=== PATIENT | male | born 1980 | race Hispanic/Latino ===

== ENCOUNTER 2022-10-27 20:58 | Observation (INO) | payer BC, OTHER ==
[~2022-10-27] VITALS: Ht 170.2 cm; Wt 133.8 kg
[2022-10-28 00:10] LABS: BASOPHILS % (AUTO) 0.7 % (0.0-5.0); HEMATOCRIT 39.3 % (42-54); LYMPHOCYTES % (AUTO) 36.9 % (21.0-51.0); MEAN CORPUSCULAR HEMOGLOBIN 28.5 pg (27.0-33.0); MEAN CORPUSCULAR HGB CONC 32.8 g/dL (32.0-36.0); MEAN CORPUSCULAR VOLUME 86.9 fL (79-99); MONOCYTES % (AUTO) 5.6 % (3.0-13.0); NEUTROPHILS % (AUTO) 52.2 % (40.0-77.0); PLATELET COUNT (AUTO) 263 K/uL (130-400); RED BLOOD CELL COUNT(AUTO) 4.52 MIL/uL (4.50-6.20); RED CELL DISTRIBUTION WIDTH 13.8 % (11.0-15.5); WHITE BLOOD COUNT (AUTO) 8.7 K/uL (4.8-10.8)
[2022-10-28 00:15] LABS: CREATININE 0.7 mg/dL (0.5-1.5); POTASSIUM 3.5 mmol/L (3.5-5.1)
[2022-10-28 00:20] LABS: ALBUMIN 3.9 g/dL (3.5-5.0); TOTAL PROTEIN, SERUM 7.5 g/dL (6.0-8.3)
[2022-10-28] MEDS ORDERED: PANTOPRAZOLE 40 MG/VIAL IVP ONE (00:30)
[2022-10-28] MEDS: PANTOPRAZOLE 40MG INJ 80 MG in 0.9%NACL 100ML 100 ML IVP SCH ×2 (02:32→11:39)
[2022-10-28] MEDS ORDERED: ONDANSETRON 4MG INJ IV PRN (03:30)
[2022-10-28] MEDS ORDERED: MORPHINE 4 MG SYG IV PRN (03:30)
[2022-10-28] MEDS ORDERED: MORPHINE 2 MG SYG IV PRN (03:30)
[2022-10-28] MEDS ORDERED: OCTREOTIDE ACETATE 100 MCG/ML AMP IV ONE (03:30)
[2022-10-28] MEDS ORDERED: ACETAMINOPHEN 325 MG TAB PO PRN ×2 (03:30)
[2022-10-28] MEDS ORDERED: OCTREOTIDE ACETATE 1,250 MCG in 0.9% NACL 250ML 250 ML IV SCH (03:30)
[2022-10-28] MEDS ORDERED: POTASSIUM CHLORIDE 20MEQ/100ML 100 ML IV PRN (04:30)
[2022-10-28] MEDS ORDERED: MAGNESIUM 2GM PREMIX 50ML 50 ML IV PRN (04:30)
[2022-10-28] MEDS ORDERED: KCL 20 MEQ ERTAB PO PRN (04:30)
[2022-10-28] MEDS ORDERED: NICOTINE 14 MG/ 24 HR PATCH TD SCH ×2 (04:30→09:00)
[2022-10-28] MEDS ORDERED: POTASSIUM CHLORIDE 10% ELIXIR 20 MEQ/15 ML UDCUP PO PRN (04:30)
[2022-10-28 04:37] LABS: HEMOGLOBIN A1C 6.1 % (4.0-6.0)
[2022-10-28] MEDS ORDERED: PHARMACY COMMUNICATION MISC SCH (05:00)
[2022-10-28 05:22] LABS: APPEARANCE,URINE CLEAR (CLEAR); BILIRUBIN,URINE NEGATIVE (NEGATIVE); COLOR,URINE LIGHT-YELLOW (YELLOW); GLUCOSE, URINE (UA) NEGATIVE (NEGATIVE); KETONES,URINE NEGATIVE (NEGATIVE); LEUKOCYTE ESTERASE ,URINE NEGATIVE Leu/uL (NEGATIVE); NITRATE,URINE NEGATIVE (NEGATIVE); OCCULT BLOOD,URINE NEGATIVE (NEGATIVE); PH,URINE 5.5 (5.0-8.0); PROTEIN,URINE 20 mg/dL (NEGATIVE); UROBILINOGEN,URINE 0.2 mg/dL (0.2-1.0)
[2022-10-28] MEDS: 0.9%NACL 1000ML 1,000 ML IV SCH ×2 (05:23→17:24)
[2022-10-28 05:24] LABS: MUCUS,URINE RARE LPF (None Seen); RBC,URINE 0-1 /HPF (0-1); SQUAMOUS EPITHELIAL CELL,UR RARE /HPF (0-2); WBC,URINE 0-1 /HPF (0-1)
[2022-10-28] MEDS ORDERED: OCTREOTIDE ACETATE 200 MCG/ML 5 ML VIAL ONE (05:37)
[2022-10-28 07:01] LABS: HEMATOCRIT 39.4 % (42-54)
[2022-10-28 07:09] LABS: INR 0.94 (0.85-1.15); PROTHROMBIN TIME 10.3 SEC (9.6-11.6)
[2022-10-28 07:11] LABS: PARTIAL THROMBOPLASTIN TIME 29.1 SEC (26.3-35.5)
[2022-10-28 07:13] LABS: CREATININE 0.6 mg/dL (0.5-1.5); PHOSPHORUS 4.2 mg/dL (2.5-4.9); POTASSIUM 3.8 mmol/L (3.5-5.1)
[2022-10-28] MEDS: INSULIN HUMULIN R 100 UNIT/ML 3ML SQ SCH ×4 (07:30→20:30)
[2022-10-28] MEDS ORDERED: PANTOPRAZOLE 40MG INJ 80 MG in 0.9%NACL 100ML 100 ML IV SCH (09:00)
[2022-10-28] MEDS ORDERED: SERT-440 PO (09:40)
[2022-10-28] MEDS ORDERED: SEMA1PEN3 SQ (09:40)
[2022-10-28] MEDS ORDERED: PANT40TA55 PO (10:16)
[2022-10-28 12:57] LABS: HEMATOCRIT 41.3 % (42-54)
[2022-10-28 15:09] VITALS: BP 162/125
[2022-10-28 16:35] VITALS: BP 159/99
[2022-10-28 19:28] LABS: HEMATOCRIT 39.4 % (42-54)
[2022-10-28 19:45] VITALS: BP 170/100
[2022-10-28] MEDS ORDERED: HYDRALAZINE 20MG/ML VIAL IV ONE (20:00)
[2022-10-28 20:45] VITALS: BP 139/96
[2022-10-28] MEDS ORDERED: PANTOPRAZOLE 40 MG TAB DR PO SCH (21:00)
[2022-10-28 21:15] VITALS: BP 145/80
== END 2022-10-28 10:30 | disposition home or self-care (01) ==
LOC: EDH 20:58 → INTOOBSV 10-28 03:20 → EDHIP 10-28 03:20 → 2DH 10-28 14:46
PROVIDERS: ADMIT Internal Medicine; ATTEND Internal Medicine
DX: K92.1 Melena (principal); Z20.822 Contact with and (suspected) exposure to COVID-19; K64.9 Unspecified hemorrhoids; E11.9 Type 2 diabetes mellitus without complications; F17.210 Nicotine dependence, cigarettes, uncomplicated; I10 Essential (primary) hypertension; M10.9 Gout, unspecified; E78.5 Hyperlipidemia, unspecified; Z51.5 Encounter for palliative care; Z79.899 Other long term (current) drug therapy
CPT/HCPCS: 80053; 85025; 96376 ×2; 96361; 96365; 96366; 96375; 96368; 99284; 83036; 83735; 84100; 80048; 85610; 85730; 85014 ×3; 85018 ×3; 86850; 86900; 86901; 82948 ×2; 82270; 81001; 36415 ×2; 87635; G0378 ×7; J7030; J0360; C9113 ×4; J2354